=== PATIENT | female | born 1955 | race Caucasian/White ===

== ENCOUNTER 2018-12-07 08:35 | Emergency (ER) | payer OTHER ==
[2018-12-07] MEDS ORDERED: LIDOCAINE 4%/MENTHOL 1% PATCH TD ONE (09:04)
[2018-12-07] MEDS ORDERED: CYCLOBENZAPRINE 10 MG TAB PO ONE (09:04)
--- NOTE | 2018-12-07 09:05 | EDPHY ---
H & P Stated Complaint: Lumbar pain Time Seen by Provider: 12/07/18 08:43 HPI/ROS: CHIEF COMPLAINT: Low back pain HISTORY OF PRESENT ILLNESS: This is a 62-year-old female with no known medical problems who presents with low back pain that began while she was bending and lifting heavy objects at work this morning. She had the abrupt onset of low back pain, extending across her back at the level of her waist. She did not fall or strike her back. She took 400 mg of Advil. She denies numbness, weakness, bowel or bladder problems. She had a similar back issue a few years ago under similar circumstances. She improved with muscle relaxants. REVIEW OF SYSTEMS: A ten system review of systems was performed and is negative with the exception of the items mentioned in the HPI. Past medical history: Seizure disorder on Keppra, no seizures for many years Past surgical history: Negative Social history: She works at [employer]. She does not use tobacco products she drinks alcohol socially. She is here with her . General Appearance: Alert. Vital signs reviewed. Initial blood pressure 153/ 90. Eyes: Pupils equal and round, no conjunctival injection, no discharge. Anicteric. ENT, Mouth: Mucous membranes are moist, no oropharyngeal erythema or edema. Neck: No lymphadenopathy, supple. Respiratory: Lungs are clear to auscultation; no wheezes, rales, or rhonchi. Cardiovascular: Regular rate and rhythm; no murmur, rub, or gallop. Gastrointestinal: Abdomen is soft and nontender, no masses or organomegaly, bowel sounds normal. Skin: Warm and dry, no rashes on exposed skin, normal color. Back: Nontender to palpation over the thoracolumbar spine in the midline. Some tenderness with palpation over the paraspinous muscles on the left at the level of her waist. No palpable spasm. No CVAT. Extremities: No lower extremity edema, no calf tenderness or swelling. Neurological: Alert and oriented. Moving all four extremities easily and equally. Strength is 5 over 5 bilaterally with testing of all major motor groups in both lower extremities. Sensation is intact to light touch both lower extremities. Deep tendon reflexes are 2+ in the biceps and 1+ in the ankles bilaterally. Gait is normal. Psychiatric: Normal affect. - Personal History Current Tetanus/Diphtheria Vaccine: Unsure Current Tetanus Diphtheria and Acellular Pertussis (TDAP): Unsure Tetanus Vaccine Date: within last 10 years - Medical/Surgical History Hx Asthma: No Hx Chronic Respiratory Disease: No Hx Diabetes: No Hx Cardiac Disease: No Hx Renal Disease: No Hx Cirrhosis: No Hx Alcoholism: No Hx HIV/AIDS: No Hx Splenectomy or Spleen Trauma: No Other PMH: Epilepsy. - Social History Smoking Status: Never smoked Constitutional: Initial Vital Signs Temperature (C) 36.7 C 12/07/18 08:44 Heart Rate 68 12/07/18 08:44 Respiratory Rate 16 12/07/18 08:44 Blood Pressure 153/90 H 12/07/18 08:44 O2 Sat (%) 91 L 12/07/18 08:44 O2 Delivery Mode Room Air Allergies/Adverse Reactions: No Known Allergies Allergy (Unverified 12/07/18 08:43) Home Medications: Medication Instructions Recorded Cyclobenzaprine [Flexeril 10 MG 10 mg PO TID PRN #15 tab 12/07/18 (*)] Keppra 12/07/18 Medical Decision Making ED Course/Re-evaluation: Lidocaine patch was placed over the painful area on her back. She is given prescription for Flexeril. She will continue with ibuprofen and Tylenol. She thinks that she will need to see a workman's compensation physician. She is given a work excuse for the next 2 days. No neurologic deficits. No direct trauma, x-rays will not be helpful. No radicular findings. Nothing to suggest cord compression. No signs of infection. Initial BP was high, with second BP on the low side (more typical for her she says). Differential Diagnosis: Back pain including but not limited to muscular pain, herniated disc, spine fracture, intra-abdominal causes and urinary tract infection. - Data Points Medications Given: Discontinued Medications Cyclobenzaprine HCl (Flexeril) 10 mg PO EDNOW ONE Stop: 12/07/18 09:05 Last Admin: 12/07/18 09:26 Dose: 10 mg Miscellaneous Medication (Icy Hot Lidocaine/Menthol 4%/1% Patch) 1 patch TD EDNOW ONE Stop: 12/07/18 09:05 Last Admin: 12/07/18 09:26 Dose: 1 patch Departure - Departure Disposition: Home, Routine, Self-Care Clinical Impression: Low back strain Condition: Good Instructions: Low Back Strain (ED), Lower Back Exercises (ED) Additional Instructions: Adult Pain & Fever Control: We recommend Acetaminophen (Tylenol) and Ibuprofen (Motrin,Advil) for pain and fever control. When fever is high or pain severe, both drugs can be used at the same time, but at different intervals. Please note the time differences. Your dose is: Acetaminophen 650mg every 4 to 6 hours Ibuprofen 400mg every 6 hours with food I recommend that you continue with daily Tylenol and ibuprofen, in alternating doses, as above. Note: do not take Acetaminophen with Hydrocodone (Vicodin, Lortab) or Oycodone (Percocet). These medications also contain Acetaminophen. No more than 3000mg of Acetaminophen should be taken in 24 hours (for an adult). Use the lidocaine patches per the instructions on the box. You can buy these [id number] in a drugstore. Use the Flexeril for muscle relaxation. I am referring you to a primary care physician. I suspect that your work will want you to follow up with workman's compensation. Check with them about this. You will light likely need a release to return to work. I am providing you with a work excuse for the next 2 days. Referrals: Patient,NotPresent [Unknown] - As per Instructions Edwige Felton MD [Medical Doctor] - As per Instructions Stand Alone Forms: Work Excuse Prescriptions: Cyclobenzaprine [Flexeril 10 MG (*)] 10 mg PO TID PRN #15 tab PRN Reason: Spasms
[2018-12-07 09:53] VITALS: BP 103/58
[2018-12-07] MEDS ORDERED: PATCH REMOVAL 1 EA PATCH TD SCH (21:00)
== END 2018-12-07 09:53 | disposition home or self-care (01) ==
LOC: EDUNIT#
DX: S39.012A Strain of muscle, fascia and tendon of lower back, initial encounter (principal); X50.0XXA Overexertion from strenuous movement or load, initial encounter; Z99.0 Dependence on aspirator